=== PATIENT | male | born 1980 | race Caucasian/White ===

== ENCOUNTER 2023-04-02 11:01 | Emergency (ER) | payer OTHER ==
[2023-04-02] MEDS ORDERED: Sodium Chloride 0.9% 10 ML Syringe FLUSH PRN (11:20)
[2023-04-02] MEDS ORDERED: Ondansetron 4 MG/2 ML SDV IVPUSH ONE (11:25)
[2023-04-02] MEDS ORDERED: Sodium Chloride 0.9% 1,000 ML IV SCH (11:30)
[2023-04-02] MEDS ORDERED: Acetaminophen 325 MG Tab PO ONE (11:56)
[2023-04-02 12:00] LABS: BASOPHILS PERCENT AUTO 0.2 % (0.0-1.0); EOSINOPHILS PERCENT AUTO 0.2 % (0.0-6.0); HEMATOCRIT 37.1 % (42.0-52.0); HEMOGLOBIN 13.1 gm/dl (14.0-18.0); IMMATURE GRAN ABSOLUTE AUTO 0.01 K/mm3 (0.00-0.05); IMMATURE GRAN PERCENT AUTO 0.2 % (0.0-0.4); LYMPHOCYTES ABSOLUTE AUTO 0.3 K/mm3 (1.0-4.8); LYMPHOCYTES PERCENT AUTO 5.8 % (24.0-44.0); MEAN CORPUSCULAR HEMOGLOBIN 31.5 pg (28.0-32.0); MEAN CORPUSCULAR HGB CONC 35.3 g/dl (32.0-36.0); MEAN CORPUSCULAR VOLUME 89.2 fl (83.0-99.0); MEAN PLATELET VOLUME 9.9 fl (9.4-12.4); MONOCYTES ABSOLUTE AUTO 0.4 K/mm3 (0.0-0.8); MONOCYTES PERCENT AUTO 8.1 % (0.0-8.0); NEUTROPHILS PERCENT AUTO 85.5 % (41.0-71.0); PLATELET COUNT,PLT 153 K/mm3 (150-400); RED BLOOD CELL COUNT 4.16 M/mm3 (4.52-5.90); WHITE BLOOD CELL COUNT,WBC 4.67 K/mm3 (3.9-11.3)
[2023-04-02 12:28] LABS: A/G RATIO 1.1 (1-2); ALBUMIN 3.7 g/dl (3.4-5.0); ANION GAP 15.3 (5-15); BILIRUBIN TOTAL 0.5 mg/dL (0.2-1.0); C-REACTIVE PROTEIN 1.1 mg/dL (<1.0); CALCIUM 8.9 mg/dL (8.5-10.1); CREATININE 1.5 mg/dL (0.7-1.3); EST CRCL DRUG DOSING (CG) 65.46 mL/min; POTASSIUM,K 3.3 mEq/L (3.5-5.1)
[2023-04-02 12:36] LABS: CORONAVIRUS COVID-19 NAA POSITIVE (NEGATIVE); INFLUENZA A NAA POSITIVE (NEGATIVE); RESPIRATORY SYNCYTIAL VIR NAA NEGATIVE (NEGATIVE)
[2023-04-02] MEDS ORDERED: Potassium Chloride 20 MEQ Tab.ER PO ONE (12:51)
[2023-04-02] MEDS ORDERED: Ibuprofen 600 MG Tab PO ONE (12:58)
== END 2023-04-02 13:41 | disposition home or self-care (01) ==
LOC: JD.ED 11:01
DX: U07.1 COVID-19 (principal); J10.1 Influenza due to other identified influenza virus with other respiratory manifestations; Z88.0 Allergy status to penicillin
CPT/HCPCS: 0241U; 36415; 80053; 83690; 85025; 86140; 96361; 96374; 99284; A9270; J2405; J7030; 99283